=== PATIENT | male | born 1955 | race Caucasian/White ===

== ENCOUNTER 2016-08-14 12:44 | Emergency (ER) | payer OTHER ==
[2016-08-14 14:00] LABS: ABSOLUTE NEUTROPHIL COUNT 3.2 K/mm3 (1.8-7.7); BASO # 0.1 K/mm3 (0.0-0.2); EOS # 0.1 (0.0-0.5); EOS % 2.4 % (0.9-2.9); HEMATOCRIT 43.1 % (32.0-52.0); HEMOGLOBIN 14.5 gm/l (14.0-18.0); IMM NEUT% 0.2 % (0-1); LYMPH % 34.2 % (15-45); MEAN CELL VOLUME 93.1 fl (80.0-94.0); MEAN CORPUSCULAR HEMOGLOBIN 31.3 pg (27.0-31.0); MEAN CORPUSCULAR HGB CONC 33.6 g/dl (33.0-37.0); MEAN PLATELET VOLUME 10.3 fl (7.4-10.4); MONO # 0.5 (0.0-0.8); MONO % 8.2 % (4-12); PLATELET COUNT 198 K/mm3 (130-400); RED CELL DISTRIBUTION WIDTH 12.2 % (11.5-14.5)
[2016-08-14 14:05] LABS: ALB/GLOB RATIO 1.4 (>1.0); ALBUMIN 4.2 gm/dL (3.5-5.7); CALCIUM 9.2 mg/dL (8.6-10.3)
[2016-08-14 14:11] LABS: TROPONIN I < 0.01 ng/ml (0.0-0.06)
--- NOTE | 2016-08-14 14:12 | RAD ---
08/14/2016 2:06 PM CHEST - 2 VIEWS History: Left chest and back pain since this morning. Comparison: None Findings: Two views of the chest are obtained. The lungs are clear with out effusion or pneumothorax. The cardiomediastinal silhouette is unremarkable.. The osseous structures are intact.. IMPRESSION: No acute intrathoracic process.
[2016-08-14 14:15] LABS: CKMB ISOENZYME 1.7 ng/ml (0.6-6.3)
[2016-08-14 14:41] LABS: D-DIMER 0.3 mg/L FEU (0.20-0.50); INR 1.01; PROTHROMBIN TIME 10.6 SECONDS (9.3-11.4)
[2016-08-14] MEDS ORDERED: HYDROCODONE/ACETAMINOPHEN 5/325MG TABLET ONE (14:42)
== END 2016-08-14 16:23 | disposition home or self-care (01) ==
LOC: ED 12:44
DX: R07.89 Other chest pain (principal); I10 Essential (primary) hypertension; E78.00 Pure hypercholesterolemia, unspecified; E78.5 Hyperlipidemia, unspecified
CPT/HCPCS: 85379; 85025; 82553; 80053; 85610; 84484; 71020; 99284 ×2; 93005; A9270